=== PATIENT | female | born 1970 | race Caucasian/White ===

== ENCOUNTER → 2019-12-11 13:48 | Outpatient (CLI) | payer OTHER, SELFPAY ==
--- NOTE | 2019-12-11 | DI.US.S_ITS ---
PROCEDURE: US PELVIC COMPLETE INDICATIONS: BLEEDING TECHNIQUE: Real-time scanning was performed of the pelvic organs, with image documentation. Additional endovaginal scanning was necessary due to incomplete visualization of the adnexal and endometrial structures by transabdominal scanning. COMPARISON: [facility], US, US PELVIC COMPLETE, 07/02/2018, 12:56. [facility], US, PELVIC COMPLETE, 07/19/2015, 13:15. [facility], US, US ABDOMEN COMPLETE, 12/11/2019, 14:41. FINDINGS: Transabdominal scanning: Fluid is seen within the facet joints themselves. Endovaginal scanning: Uterus: Uterus is normal in size at 9.7 x 4.6 x 5.3 cm. The endometrium measures 12 mm in combined thickness. Incidental note is made of nabothian cysts. Ovaries: The right ovary measures 3.9 x 1.9 x 2.2 cm. The left ovary measures 3.2 x 1.4 x 2.1 cm. The ovaries have a normal sonographic appearance. No adnexal masses are seen. IMPRESSION: Pelvic ultrasound study within normal limits, without an imaging explanation found for the patient's presenting history. Dictated by: Yusef Sexton M.D. on 12/11/2019 at 15:49 Approved by: Yusef Sexton M.D. on 12/11/2019 at 15:50
--- NOTE | 2019-12-11 | DI.US.S_ITS ---
PROCEDURE: US ABDOMEN COMPLETE INDICATIONS: EXCESSIVE AND FREQUENT MENSTRATION TECHNIQUE: Real-time scanning was performed of the abdominal and retroperitoneal organs, with image documentation. COMPARISON: [facility], US, US PELVIC COMPLETE, 12/11/2019, 14:16. FINDINGS: Liver: Liver is normal in size and homogeneous in echotexture. Gallbladder: No findings of gallstones or sludge are seen. The gallbladder wall is not thickened, measuring 3 mm or less. No specific pericholecystic fluid is seen. The sonographic Ferrera sign is negative. Biliary ducts: Intrahepatic bile ducts are non-dilated. Extrahepatic bile duct caliber is mildly dilated at 7.6 mm. Normal is 6-7 mm or less in diameter, or 10 mm or less post-cholecystectomy. Pancreas: Visualized portions of the pancreas are sonographically normal. Spleen: Spleen is normal in size and homogeneous in echotexture. Kidneys: Kidneys are normal in size and echotexture. Right kidney measures 10.7 cm long; left kidney measures 11 cm long. No hydronephrosis or nephrolithiasis. No solid masses. Aorta: Visualized aorta is normal in caliber at less than 3 cm. Iliacs: Proximal common iliac arteries are normal in caliber at less than 2.5 cm. IVC: Intrahepatic inferior vena cava is patent. Miscellaneous: No free abdominal fluid. IMPRESSION: Normal appearing gallbladder. Mildly dilated common bile duct measuring 7.6 mm, with the upper limits of normal considered to be 7 mm. If clinically appropriate, an MRCP could be considered for further evaluation (assuming that there is no contraindication to MRI). Dictated by: Yusef Sexton M.D. on 12/11/2019 at 15:50 Approved by: Yusef Sexton M.D. on 12/11/2019 at 15:51
== END ==
PROVIDERS: Family Provider Family Medicine; PCP Family Medicine; Referring Provider Family Medicine; Visit Provider Family Medicine
DX: N92.0 Excessive and frequent menstruation with regular cycle (principal); R10.10 Upper abdominal pain, unspecified; D25.9 Leiomyoma of uterus, unspecified; K83.8 Other specified diseases of biliary tract; N88.8 Other specified noninflammatory disorders of cervix uteri
CPT/HCPCS: 76700; 76830; 76856

== ENCOUNTER → 2020-01-01 13:59 | Outpatient (CLI) | payer OTHER, SELFPAY ==
--- NOTE | 2020-01-01 | DI.MRI.S_ITS ---
PROCEDURE: MR ABDOMEN WO CON INDICATIONS: OTHER DISEASE OF BI SYSTEM TECHNIQUE: Coronal HASTE through the abdomen, axial 2-D FLASH in- and [id number], and breath-hold T2 FSE with fat saturation through the biliary system and pancreas. Oblique coronal and axial thin-slice HASTE, radial thick-slab HASTE centered on the extrahepatic bile ducts. Intravenous secretin: Not requested. COMPARISON: [facility], , ABDOMEN COMPLETE, 12/11/2019, 14:41. FINDINGS: Image quality: Excellent. Pancreas and biliary system: Intra- and extra-hepatic biliary ducts are non dilated. Pancreas is normal in morphology, without adjacent soft tissue edema. Pancreatic duct is normal in caliber, without developmental anomalies. Gallbladder is free of calculus. Other solid organs: Liver is normal in size. Spleen is normal in size. No adrenal nodules. Both kidneys are normal in size, without hydronephrosis. Nodes and vessels: No retroperitoneal or mesenteric adenopathy by size criteria. Aorta and inferior vena cava are normal in size. Bowel and peritoneum: Unenhanced bowel loops are normal in caliber. No free fluid. Lung bases: No basal pleural effusions. Heart size is normal. Bones and soft tissues: No ventral hernias. Bone marrow is of normal overall signal. IMPRESSION: Normal MR cholangiogram, normal appearance of the gallbladder and at time of scanning there is no suspicion for presence of common duct calculus. The pancreas shows no evidence of mass, or inflammation. Overall, normal for age. Dictated by: Fan Guevara M.D. on 01/01/2020 at 15:47 Approved by: Fan Guevara M.D. on 01/01/2020 at 15:50
== END ==
PROVIDERS: Family Provider Family Medicine; PCP Family Medicine; Referring Provider Family Medicine; Visit Provider Family Medicine
DX: K83.8 Other specified diseases of biliary tract (principal); R10.11 Right upper quadrant pain
CPT/HCPCS: 74181

== ENCOUNTER → 2020-03-12 12:01 | Outpatient (CLI) | payer OTHER, SELFPAY ==
--- NOTE | 2020-03-12 | DI.MG.S_ITS ---
BILATERAL DIGITAL SCREENING MAMMOGRAM 3D/2D WITH CAD WITH AUGMENTATION: 03/12/2020 CLINICAL: Routine screening. Comparison is made to exam dated: 07/26/2015 [facility]. The tissue of both breasts is extremely dense, which lowers the sensitivity of mammography. Current study was also evaluated with a Computer Aided Detection (CAD) system. Bilateral breast implants are intact. No significant masses, calcifications, or other findings are seen in either breast. There has been no significant interval change. IMPRESSION: NEGATIVE There is no mammographic evidence of malignancy. A 1 year screening mammogram is recommended. This exam was interpreted at Station ID: [id number]. NOTE: For mammograms, a report in lay terms will be sent to the patient. Approximately 15% of breast malignancies will not be visualized mammographically. In the management of a palpable breast mass, a negative mammogram must not discourage biopsy of a clinically suspicious lesion. Electronically Signed By: Domonique perez/bryn:03/12/2020 13:09:08 letter sent: Normal Exam ACR BI-RADS Category 1: Negative 3341F
== END ==
PROVIDERS: Family Provider Family Medicine; PCP Family Medicine; Referring Provider Family Medicine; Visit Provider Family Medicine
DX: Z12.31 Encounter for screening mammogram for malignant neoplasm of breast (principal)
CPT/HCPCS: 77063; 77067

== ENCOUNTER 2020-06-10 18:02 | Emergency (ER) | payer OTHER, SELFPAY ==
[2020-06-10 18:14] VITALS: BP 153/76; PULSE 85; PULSE 93; RESP 14; TEMP 37.1; O2SAT 100; O2SAT 99; BMI 26.6
--- NOTE | 2020-06-10 18:16 | DI.RAD.S_ITS ---
PROCEDURE: XR CHEST 1V INDICATIONS: chest pain TECHNIQUE: One view of the chest was acquired. COMPARISON: None. FINDINGS: Surgical changes and devices: None. Lungs and pleura: Lungs are clear. No pleural effusions or pneumothorax. Mediastinum: Mediastinal contours appear normal. Heart size is normal. Bones and chest wall: No suspicious bony lesions. Overlying soft tissues appear unremarkable. IMPRESSION: No acute process. Dictated by: Isabella Flores M.D. on 06/10/2020 at 19:29 Approved by: Isabella Flores M.D. on 06/10/2020 at 19:29
[2020-06-10 18:30] VITALS: PULSE 86; RESP 13; O2SAT 100
[2020-06-10 18:31] VITALS: BP 146/81; PULSE 85; RESP 18; O2SAT 98
[2020-06-10 18:47] LABS: Add Manual Diff / Slide Review NO; Basophils Absolute Auto 0 /uL (0-100); Basophils Percent Auto 0.7 % (0-2); Eosinophils Absolute Auto 100 /uL (0-450); Eosinophils Percent Auto 1.1 % (2-4); Hematocrit 41.5 % (36-46); Hemoglobin 13.8 g/dL (12.0-16.0); Lymphocytes Absolute Auto 1400 /uL (1100-4500); Lymphocytes Percent Auto 23.1 % (25-40); Mean Corpuscular HGB Conc 33.2 % (30-36); Mean Corpuscular Hemoglobin 28.6 PG (26-34); Mean Corpuscular Volume 86.2 fL (80-100); Monocytes Absolute Auto 300 /uL (0-900); Monocytes Percent Auto 5.6 % (3-14); Neutrophils Absolute Auto 4300 /uL (1500-7000); Neutrophils Percent Auto 69.5 % (50-75); Platelet Count 184 X10^3/uL (150-400); Prothrombin Time 11.3 SECONDS (10.1-12.7); Red Blood Cell Count 4.81 X10^6/uL (4.0-5.2); Red Cell Distribution Width 14.8 % (11.6-14.8); White Blood Cell Count 6.2 X10^3/uL (4.5-11.0)
[2020-06-10] MEDS: ONDANSETRON 4 MG ODT SL (18:48)
[2020-06-10] MEDS: ASPIRIN 81 MG CHEW TAB 324 MG PO (18:48)
[2020-06-10 18:49] LABS: PTT Partial Thromboplastin Tim 30 SECONDS (26.4-36.2)
[2020-06-10 18:52] LABS: Alanine Aminotransferase 15 IU/L (<35); Albumin 4.6 g/dL (3.5-5.0); Albumin Globulin Ratio 1.5 (1.0-2.8); Alkaline Phosphatase 61 U/L (38-126); Aspartate Aminotransferase 29 IU/L (14-36); BUN Creatinine Ratio 19.4 (6-22); Bilirubin Total 0.4 mg/dL (0.2-1.3); Blood Urea Nitrogen 12 mg/dL (7-17); Carbon Dioxide 28 mmol/L (22-32); Chloride 104 mmol/L (98-107); Creatine Kinase 59 U/L (30-135); Estimated Glomerular Filt Rate > 60.0 mL/min (>60); Globulin 3.1 g/dL (1.7-4.1); Glucose 108 mg/dL (70-100); HEMOLYSIS < 15 (0-50); Lipase 169 U/L (23-300); Potassium 3.4 mmol/L (3.4-5.1); Sodium 137 mmol/L (137-145); Total Protein 7.7 g/dL (6.3-8.2)
[2020-06-10 18:55] LABS: COVID19 -Nasal RAPID Negative (Negative)
[2020-06-10 19:00] VITALS: BP 142/73; PULSE 90; RESP 14; O2SAT 97
[2020-06-10 19:03] LABS: Troponin I < 0.012 ng/mL (0.01-0.034)
[2020-06-10 19:30] VITALS: BP 132/84; PULSE 83; RESP 17; O2SAT 96
--- NOTE | 2020-06-10 19:49 | ED.GENADULT ---
HPI - General Adult General Chief complaint: Hypertension Stated complaint: states hypertension, SOB, headache, ringing ears Time Seen by Provider: 06/10/20 19:23 Source: patient Mode of arrival: Wheelchair Limitations: no limitations History of Present Illness HPI narrative: Patient is a 49-year-old female who admits that she has anxiety issues here for evaluation of multiple symptoms to include elevated blood pressure, headache, not feeling well, ringing in her ears, shortness of breath. She states that all the symptoms have been going on for the past several weeks. She was exposed to an individual who had COVID-19 a several weeks ago however has had a negative test since then which was approximately 1 week after her exposure. She has not tried anything for her symptoms prior to arrival. Related Data Home Medications Medication Instructions Recorded Confirmed alprazolam 0.5 mg tablet 0.25 mg PO BID-TID PRN 07/02/18 07/02/18 escitalopram oxalate 20 mg tablet 20 mg PO DAILY 07/02/18 07/02/18 lisdexamfetamine 50 mg capsule 50 mg PO DAILY 07/02/18 07/02/18 Allergies Allergy/AdvReac Type Severity Reaction Status Date / Time bupropion [From Wellbutrin] Allergy Mild Hives Verified 06/10/20 18:17 Review of Systems Constitutional Constitutional: Reports chills, Reports fatigue, Reports fever(s) and Reports headache(s) Eyes Eyes: Denies change in vision ENT Ears, Nose, Mouth, and Throat: Denies vertigo, Denies dizziness and Reports headache(s) Comments: Ringing in her ears Cardiovascular Cardiovascular: Reports chest pain and Reports dyspnea Respiratory Respiratory: Reports dyspnea Gastrointestinal Gastrointestinal: Denies abdominal pain, Reports nausea and Denies vomiting Genitourinary Genitourinary: Denies dysuria Genitourinary: Denies dysuria Musculoskeletal Musculoskeletal: Denies arthralgias, Denies myalgias and Denies tingling Integumentary/Breasts Skin/Breast: Denies rash Neurologic Neurologic: Denies vertigo, Denies dizziness, Reports headache(s) and Denies tingling Psychiatric Psychiatric: Reports anxiety Endocrine Endocrine: Reports fatigue and Reports flushing Hematologic/Lymphatic On Anticoagulants: No Allergic/Immunologic Allergic/Immunologic: Denies urticaria Patient History Medical History Anxiety Social History Smoking Status: Former smoker Smoking Status: Former smoker alcohol intake frequency: holidays/special occasions only Substance Use Type: marijuana Exam Initial Vital Signs Initial Vital Signs: Vital Signs Temperature 98.8 F 06/10/20 18:14 Pulse Rate 85 06/10/20 18:14 Respiratory Rate 14 06/10/20 18:14 Blood Pressure 153/76 H 06/10/20 18:14 Pulse Oximetry 99 06/10/20 18:14 Const General: cooperative and comfortable Limitations: mental status not altered HENMT Head: normal to inspection and normocephalic Resp Effort & Inspection: normal respiratory effort Auscultation: clear to auscultation bilaterally Cardio Rate: regular rate Rhythm: regular rhythm GI Inspection: non-distended Palpation: soft Skin Lesions: no lesions Rashes: no rashes Neuro General: patient alert, patient awake and patient oriented x3 Cognition: normal cognition Speech: speech normal Extrem General: normal to inspection and capillary refill normal Psych Appearance: grossly normal and well kempt Scores GCS [place] coma scale eye opening: Spontaneous [place] coma scale verbal response: Orientated Serge coma scale motor response: Obey commands Serge coma scale total score: 15 Course Orders Ordered: ED Orders 06/10/20 18:25 COVID19 Stat Complete Blood Count AUTO DIFF Stat Comprehensive Metabolic Panel Stat Lipase Stat Partial Thromboplastin Time Stat Prothrombin Time INR Stat Troponin & CK Cardiac Panel Stat Discontinued Medications Aspirin (Aspirin 81 Mg Chew Tab) 324 mg PO NOW ONE Stop: 06/10/20 18:44 Last Admin: 06/10/20 18:48 Dose: 324 mg Documented by: KARLIE Ondansetron HCl (Ondansetron 4 Mg Odt) 4 mg SL NOW ONE Stop: 06/10/20 18:45 Last Admin: 06/10/20 18:48 Dose: 4 mg Documented by: KARLIE Vital Signs Vital signs: Vital Signs - 8 hr 06/10/20 19:30 Pulse Rate 83 Respiratory Rate 17 Blood Pressure 132/84 Pulse Oximetry 96 Medical Decision Making Medical Records Medical records reviewed: Yes I reviewed the patient's medical records. Lab Data Lab results reviewed: Yes I reviewed the patient's lab results. Result diagrams: 06/10/20 18:25 06/10/20 18:25 Labs: Lab Results 06/10/20 06/10/20 06/10/20 Range/Units 18:25 18:25 18:25 WBC 6.2 (4.5-11.0) X10^3/uL RBC 4.81 (4.0-5.2) X10^6/uL Hgb 13.8 (12.0-16.0) g/dL Hct 41.5 (36-46) % MCV 86.2 (80-100) fL MCH 28.6 (26-34) PG MCHC 33.2 (30-36) % RDW 14.8 (11.6-14.8) % Plt Count 184 (150-400) X10^3/uL Neut % (Auto) 69.5 (50-75) % Lymph % (Auto) 23.1 L (25-40) % [place] % (Auto) 5.6 (3-14) % Eos % (Auto) 1.1 L (2-4) % Baso % (Auto) 0.7 (0-2) % Neut # (Auto) 4300 (5342-7478) /uL Lymph # (Auto) 1400 (6951-2936) /uL [place] # (Auto) 300 (0-900) /uL Eos # (Auto) 100 (0-450) /uL Baso # (Auto) 0 (0-100) /uL PT 11.3 (10.1-12.7) SECONDS INR 1.0 (0.9-1.3) APTT 30 (26.4-36.2) SECONDS Sodium 137 (137-145) mmol/L Potassium 3.4 (3.4-5.1) mmol/L Chloride 104 (98-107) mmol/L Carbon Dioxide 28 (22-32) mmol/L BUN 12 (7-17) mg/dL Creatinine 0.62 (0.52-1.04) mg/dL Estimated GFR > 60.0 (>60) mL/min BUN/Creatinine Ratio 19.4 (6-22) Glucose 108 H (70-100) mg/dL Calcium 9.0 (8.4-10.2) mg/dL Total Bilirubin 0.4 (0.2-1.3) mg/dL AST 29 (14-36) IU/L ALT 15 (<35) IU/L Alkaline Phosphatase 61 (38-126) U/L Total Creatine Kinase 59 (30-135) U/L CK-MB (CK-2) TNP CK-MB (CK-2) Rel Index TNP Troponin I < 0.012 (0.01-0.034) ng/mL Total Protein 7.7 (6.3-8.2) g/dL Albumin 4.6 (3.5-5.0) g/dL Globulin 3.1 (1.7-4.1) g/dL Albumin/Globulin Ratio 1.5 (1.0-2.8) Lipase 169 (23-300) U/L SARS-CoV-2 (PCR) (Negative) 06/10/20 Range/Units 18:25 WBC (4.5-11.0) X10^3/uL RBC (4.0-5.2) X10^6/uL Hgb (12.0-16.0) g/dL Hct (36-46) % MCV (80-100) fL MCH (26-34) PG MCHC (30-36) % RDW (11.6-14.8) % Plt Count (150-400) X10^3/uL Neut % (Auto) (50-75) % Lymph % (Auto) (25-40) % [place] % (Auto) (3-14) % Eos % (Auto) (2-4) % Baso % (Auto) (0-2) % Neut # (Auto) (9105-9278) /uL Lymph # (Auto) (9573-7685) /uL [place] # (Auto) (0-900) /uL Eos # (Auto) (0-450) /uL Baso # (Auto) (0-100) /uL PT (10.1-12.7) SECONDS INR (0.9-1.3) APTT (26.4-36.2) SECONDS Sodium (137-145) mmol/L Potassium (3.4-5.1) mmol/L Chloride (98-107) mmol/L Carbon Dioxide (22-32) mmol/L BUN (7-17) mg/dL Creatinine (0.52-1.04) mg/dL Estimated GFR (>60) mL/min BUN/Creatinine Ratio (6-22) Glucose (70-100) mg/dL Calcium (8.4-10.2) mg/dL Total Bilirubin (0.2-1.3) mg/dL AST (14-36) IU/L ALT (<35) IU/L Alkaline Phosphatase (38-126) U/L Total Creatine Kinase (30-135) U/L CK-MB (CK-2) CK-MB (CK-2) Rel Index Troponin I (0.01-0.034) ng/mL Total Protein (6.3-8.2) g/dL Albumin (3.5-5.0) g/dL Globulin (1.7-4.1) g/dL Albumin/Globulin Ratio (1.0-2.8) Lipase (23-300) U/L SARS-CoV-2 (PCR) Negative (Negative) Imaging Data Chest x-ray: Radiologist's Impression: [address] [id number] ReportSigned Patient: Holland Irizarry AMR#: [id number]: 1970Acct:[id number]/Sex: 49 / FDate of Service: 06/10/20Loc: EDAccession Number: [id number] Procedure: XR chest 1V Ordering Provider: Roland Edwards D.O. PROCEDURE: XR CHEST 1V INDICATIONS: chest pain TECHNIQUE: One view of the chest was acquired. COMPARISON: None. FINDINGS: Surgical changes and devices: None. Lungs and pleura: Lungs are clear. No pleural effusions or pneumothorax. Mediastinum: Mediastinal contours appear normal. Heart size is normal. Bones and chest wall: No suspicious bony lesions. Overlying soft tissues appear unremarkable. IMPRESSION: No acute process. Dictated by: Isabella Flores M.D. on 06/10/2020 at 19:29 Approved by: Isabella Flores M.D. on 06/10/2020 at 19:29 ECG Data Attestation: I personally reviewed and interpreted this ECG as follows: Prior ECG tracings: not available for review Interpretation: Sinus rhythm Ventricular rate 86 Normal axis Normal QRS Normal QTC No ST T wave changes MDM Narrative Medical decision making narrative: Patient workup here in the emergency department is unremarkable. Her blood pressure improved without specific interventions here in the ER. Had a discussion with her regarding her symptoms. I do have a high suspicion that many of her symptoms are related to menopause as she states she is having very irregular menstrual cycles. She states she is getting hot flashes and having anxiety and other issues that are consistent with menopause. I did discuss this with her. She is going to contact her primary provider for further workup. I feel that she can be discharged home. We did discuss return precautions and follow-up instructions. She expressed understanding and agreement. Discharge Plan Departure Patient Disposition: Home Clinical Impression: Hypertension Instructions: DI for High Blood Pressure Activity Restrictions/Additional Instructions: I recommend that you take your blood pressure at home like we discussed. Contact your primary provider for follow-up. Return to the emergency department for any new or worsening symptoms Prescriptions: No Action alprazolam [Xanax] 0.5 mg tablet 0.25 mg PO BID-TID PRNRF: 0 escitalopram oxalate [Lexapro] 20 mg tablet 20 mg PO DAILY RF: 0 Vyvanse 50 mg capsule 50 mg PO DAILY RF: 0 Referrals: Roland Jay MD [Primary Care Provider] -
== END 2020-06-10 20:05 | disposition home or self-care (01) ==
PROVIDERS: Emergency Provider Emergency Medicine; Family Provider Family Medicine; PCP Family Medicine
DX: I10 Essential (primary) hypertension (principal); R51.9 Headache, unspecified; R06.02 Shortness of breath; F41.9 Anxiety disorder, unspecified; R07.9 Chest pain, unspecified; Z20.822 Contact with and (suspected) exposure to COVID-19
CPT/HCPCS: 36415; 71045; 80053; 82550; 83690; 84484; 85025; 85610; 85730; 87635; 93005; 93010; 99281; 99284; C9803

== ENCOUNTER → 2022-01-30 09:14 | Outpatient (CLI) | payer OTHER, SELFPAY | PROVIDERS: Family Provider Family Medicine; PCP Physician Assistant; Visit Provider Physician Assistant | DX: B80 Enterobiasis (principal); L29.0 Pruritus ani | CPT/HCPCS: 87177 ==

== ENCOUNTER → 2022-01-31 10:58 | Outpatient (CLI) | payer OTHER, SELFPAY ==
[2022-01-31 19:13] LABS: Add Manual Diff / Slide Review NO; Basophils Absolute Auto 0 /uL (0-100); Basophils Percent Auto 0.5 % (0-2); Eosinophils Absolute Auto 100 /uL (0-450); Eosinophils Percent Auto 1.1 % (2-4); Hematocrit 43.4 % (36-46); Hemoglobin 14.4 g/dL (12.0-16.0); Lymphocytes Absolute Auto 1400 /uL (1100-4500); Lymphocytes Percent Auto 29.3 % (25-40); Mean Corpuscular HGB Conc 33.2 % (30-36); Mean Corpuscular Hemoglobin 29.5 PG (26-34); Mean Corpuscular Volume 88.9 fL (80-100); Monocytes Absolute Auto 300 /uL (0-900); Neutrophils Absolute Auto 2900 /uL (1500-7000); Neutrophils Percent Auto 62.1 % (50-75); Platelet Count 196 X10^3/uL (150-400); Red Blood Cell Count 4.88 X10^6/uL (4.0-5.2); Red Cell Distribution Width 13.7 % (11.6-14.8); White Blood Cell Count 4.7 X10^3/uL (4.5-11.0)
[2022-01-31 19:45] LABS: Alanine Aminotransferase 12 IU/L (<35); Albumin 4.3 g/dL (3.5-5.0); Albumin Globulin Ratio 1.5 (1.0-2.8); Alkaline Phosphatase 63 U/L (38-126); Aspartate Aminotransferase 26 IU/L (14-36); BUN Creatinine Ratio 13.7 (6-22); Bilirubin Total 0.6 mg/dL (0.2-1.3); Blood Urea Nitrogen 10 mg/dL (7-17); Calcium 9.1 mg/dL (8.4-10.2); Carbon Dioxide 29 mmol/L (22-32); Chloride 101 mmol/L (98-107); Cholesterol 202 mg/dL (140-199); Estimated Glomerular Filt Rate > 60 mL/min (>60); Globulin 2.9 g/dL (1.7-4.1); Glucose 101 mg/dL (70-100); HDL Cholesterol 57 mg/dL (40-60); HEMOLYSIS < 15 (0-50); LDL Cholesterol Calculated 126 mg/dL (<100); Potassium 4.1 mmol/L (3.4-5.1); Sodium 139 mmol/L (137-145); Total Protein 7.2 g/dL (6.3-8.2); Triglycerides 93 mg/dL (35-150)
== END ==
PROVIDERS: Family Provider Family Medicine; PCP Physician Assistant; Visit Provider Physician Assistant
DX: Z13.220 Encounter for screening for lipoid disorders (principal); K29.70 Gastritis, unspecified, without bleeding
CPT/HCPCS: 80053; 80061; 85025

== ENCOUNTER → 2022-02-20 13:29 | Outpatient (CLI) | payer OTHER, SELFPAY ==
[2022-02-20 19:26] LABS: Hemoglobin A1C% w Est Avg Glu 5.3 % (4.0-6.0)
[2022-02-20 19:52] LABS: TSH w/ Reflex to FT4 0.09 uIU/mL (0.47-4.68)
[2022-02-20 20:33] LABS: Free T4, Direct Thyroxine 1.12 ng/dL (0.78-2.19)
== END ==
PROVIDERS: Family Provider Family Medicine; PCP Physician Assistant; Visit Provider Physician Assistant
DX: E03.9 Hypothyroidism, unspecified (principal); R73.09 Other abnormal glucose
CPT/HCPCS: 83036; 84439; 84443

== ENCOUNTER → 2022-03-06 12:29 | Outpatient (CLI) | payer OTHER, SELFPAY ==
--- NOTE | 2022-03-06 | DI.MG.S_ITS ---
BILATERAL DIGITAL SCREENING MAMMOGRAM 3D/2D WITH CAD WITH AUGMENTATION: 03/06/2022 CLINICAL: Routine screening. Comparison is made to exams dated: 03/12/2020 mammogram and 07/26/2015 mammogram - [facility]. Both breasts are extremely dense, which lowers the sensitivity of mammography (category d />75% glandular tissue). Current study was also evaluated with a Computer Aided Detection (CAD) system. Bilateral breast implants are intact. No significant masses, calcifications, or other findings are seen in either breast. There has been no significant interval change. IMPRESSION: NEGATIVE There is no mammographic evidence of malignancy. A 1 year screening mammogram is recommended. This exam was interpreted at Station ID: [id number]. NOTE: For mammograms, a report in lay terms will be sent to the patient. Approximately 15% of breast malignancies will not be visualized mammographically. In the management of a palpable breast mass, a negative mammogram must not discourage biopsy of a clinically suspicious lesion. Electronically Signed By: Uri gutierrez/bryn:03/06/2022 16:55:13 letter sent: Normal Exam ACR BI-RADS Category 1: Negative [id number]
== END ==
PROVIDERS: Family Provider Family Medicine; PCP Physician Assistant; Referring Provider Physician Assistant; Visit Provider Physician Assistant
DX: Z12.31 Encounter for screening mammogram for malignant neoplasm of breast (principal)
CPT/HCPCS: 77063; 77067

== ENCOUNTER → 2022-05-22 11:42 | Outpatient (CLI) | payer OTHER, SELFPAY | PROVIDERS: Family Provider Family Medicine; PCP Family Medicine; Visit Provider Family Medicine | DX: T81.40XA Infection following a procedure, unspecified, initial encounter (principal); R53.83 Other fatigue; N89.8 Other specified noninflammatory disorders of vagina; Z90.710 Acquired absence of both cervix and uterus | CPT/HCPCS: 87070; 87077; 87186; 87205 ==

== ENCOUNTER 2022-05-26 18:15 | Emergency (ER) | payer OTHER, SELFPAY ==
[2022-05-26] VITALS (15 sets, daily range): BP systolic 96–137; BP diastolic 66–83; PULSE 74–87; RESP 18; TEMP 36.6; O2SAT 93–100; BMI 25.8
[2022-05-26 19:07] LABS: Add Manual Diff / Slide Review NO; Basophils Absolute Auto 100 /uL (0-100); Basophils Percent Auto 0.7 % (0-2); Eosinophils Absolute Auto 100 /uL (0-450); Hematocrit 47.4 % (36-46); Hemoglobin 15.5 g/dL (12.0-16.0); Lymphocytes Absolute Auto 1700 /uL (1100-4500); Lymphocytes Percent Auto 21.4 % (25-40); Mean Corpuscular HGB Conc 32.7 % (30-36); Mean Corpuscular Hemoglobin 29.5 PG (26-34); Monocytes Absolute Auto 500 /uL (0-900); Monocytes Percent Auto 5.9 % (3-14); Neutrophils Absolute Auto 5500 /uL (1500-7000); Platelet Count 294 X10^3/uL (150-400); Red Blood Cell Count 5.27 X10^6/uL (4.0-5.2); Red Cell Distribution Width 13.2 % (11.6-14.8); White Blood Cell Count 7.8 X10^3/uL (4.5-11.0)
[2022-05-26 19:13] LABS: Alanine Aminotransferase 33 IU/L (<35); Albumin 4.6 g/dL (3.5-5.0); Albumin Globulin Ratio 1.4 (1.0-2.8); Alkaline Phosphatase 77 U/L (38-126); Aspartate Aminotransferase 35 IU/L (14-36); BUN Creatinine Ratio 16.9 (6-22); Bilirubin Total 0.5 mg/dL (0.2-1.3); Blood Urea Nitrogen 12 mg/dL (7-17); Calcium 9.4 mg/dL (8.4-10.2); Carbon Dioxide 25 mmol/L (22-32); Chloride 101 mmol/L (98-107); Estimated Glomerular Filt Rate > 60 mL/min (>60); Globulin 3.3 g/dL (1.7-4.1); Glucose 92 mg/dL (70-100); HEMOLYSIS < 15 (0-50); Lipase 252 U/L (23-300); Potassium 3.8 mmol/L (3.4-5.1); Sodium 138 mmol/L (137-145); Total Protein 7.9 g/dL (6.3-8.2)
--- NOTE | 2022-05-26 19:23 | ED.GENADULT ---
HPI - General Adult General Chief complaint: Abdominal Pain Stated complaint: Abd pain post hysterectomy on the Time Seen by Provider: 05/26/22 19:23 Source: patient Mode of arrival: Ambulatory History of Present Illness HPI narrative: 51-year-old woman who underwent hysterectomy at [facility] on May 10 and was doing well in her recovery until May 18. She apparently had genital swabs done, was started on doxycycline with a dose of ceftriaxone on 05/22. yesterday was changed to Cipro after vaginal culture showed Morganella. She was seen by primary care today and noted to have increased nausea, generally feeling unwell with increasing abdominal tenderness, dizziness when she standing, notes an episode of dyspnea last night has had palpitations over the last few days and is also having some tinnitus over the last number of days which is new and unusual for her. Denies vaginal discharge, fevers or chills but has noted mild hematuria. Complains of no flank pain. In the clinic this afternoon urine dip was positive for leukocyte esterase. It was recommended she take [place] to [place] for further evaluation and presents for same. Related Data Home Medications Medication Instructions Recorded Confirmed carica papaya tab PO 01/26/22 05/22/22 cholecalciferol (vitamin D3) 125 125 mcg PO DAILY 01/26/22 05/22/22 mcg (5,000 unit) capsule lactobacillus combination no.9 4 4,000 mmu cells PO DAILY 01/26/22 05/22/22 billion cell capsule (Adult 50 Plus Probiotic) magnesium gluconate 500 mg tablet 1,600 mg PO BID 01/26/22 05/22/22 melatonin 3 mg tablet 3 mg PO BEDTIME PRN 01/26/22 05/22/22 omega-3 fatty acids 500 mg capsule 500 mg PO DAILY 01/26/22 05/22/22 Previous Rx's Medication Instructions Recorded mebendazole 100 mg chewable tablet 100 mg PO ONCE #2 tabs 01/26/22 semaglutide 0.25 mg or 0.5 mg (2 0.25 mg (0.2 mL) SUBCUT QWEEK #1.5 03/31/22 mg/1.5 mL) subcutaneous pen mL injector (Ozempic) thyroid (pork) 30 mg tablet 45 mg PO DAILY #45 tabs 03/31/22 ([place] Thyroid) semaglutide 3 mg tablet (Rybelsus) 3 mg PO DAILY 30 days #30 tabs 05/12/22 semaglutide 7 mg tablet (Rybelsus) 7 mg PO DAILY #30 tabs 05/12/22 ciprofloxacin HCl 500 mg tablet 500 mg PO BID #14 tabs 05/25/22 (Cipro) Allergies Allergy/AdvReac Type Severity Reaction Status Date / Time bupropion [From Wellbutrin] Allergy Mild Hives Verified 03/31/22 10:38 Review of Systems Review of Systems Narrative: Remainder of complete review of systems is otherwise unremarkable except for that included in the HPI. Patient History Medical History (Updated 05/26/22 @ 22:25 by Terri Salazar MD) Anxiety Bronchospasm Cough Fever, unspecified H/O low back pain H/O urinary tract infection Screening for breast cancer Surgical History (Updated 05/26/22 @ 19:39 by Terri Salazar MD) H/O breast augmentation H/O vaginal hysterectomy History of esophagogastroduodenoscopy (EGD) Social History Smoking Status: Former smoker Smoking Status: Former smoker alcohol intake frequency: holidays/special occasions only Substance Use Type: marijuana Exam Initial Vital Signs Initial Vital Signs: Vital Signs Temperature 97.9 F 05/26/22 18:19 Pulse Rate 87 05/26/22 18:19 Respiratory Rate 18 05/26/22 18:19 Blood Pressure 96/66 05/26/22 18:19 Pulse Oximetry 100 05/26/22 18:19 Oxygen Delivery Method 05/26/22 18:19 General: , in no acute distress. Able to give a complete and coherent history. Well-nourished well-developed HEENT: Moist mucous membranes, normal sclera with reactive pupils, Respiratory: Lungs are clear to auscultation, no wheezing no rales no rhonchi. Full and symmetrical air movement Cardiac: Regular rate and rhythm no murmurs no bruits Abdomen: Soft, mild tenderness in the right adnexal to right lower quadrant area, mild suprapubic tenderness. No rebound or guarding. Good bowel tones, no flank pain Skin: Warm and dry, no rashes Neurologic: Grossly neurologically intact with no obvious asymmetries or abnormalities Extremities: No trauma, well perfused Psych: Cooperative, appropriate insight and affect Course Orders Ordered: ED Orders 05/26/22 18:25 Urine Microscopic Stat EKG-12 Lead Stat 05/26/22 18:32 Complete Blood Count AUTO DIFF Stat Comprehensive Metabolic Panel Stat D Dimer Stat Lipase Stat 05/26/22 19:55 CT abdomen pelvis w con Stat CT angio chest PE protocol Stat Ondansetron HCl (Ondansetron 4 Mg Odt) 4 mg PO NOW PRN PRN Reason: Nausea And Vomiting Ondansetron HCl (Ondansetron 4 Mg/2 Ml Inj) 4 mg IV NOW PRN PRN Reason: Nausea And Vomiting Discontinued Medications Sodium Chloride (Normal Saline 0.9%) 1,000 mls @ 1,000 mls/hr IV BOLUS ONE Stop: 05/26/22 20:43 Last Infusion: 05/26/22 21:37 Dose: 0 mls/hr Documented By: Admin: 05/26/22 19:58 Dose: 1,000 mls/hr Documented By: YRAIEL Ketorolac Tromethamine (Ketorolac 30 Mg/Ml Vial) 15 mg IV NOW ONE Stop: 05/26/22 19:45 Last Admin: 05/26/22 19:59 Dose: 15 mg Documented By: YARIEL Vital Signs Vital signs: Vital Signs - 8 hr 05/26/22 18:19 05/26/22 18:49 Temperature 97.9 F Pulse Rate 87 Respiratory Rate 18 Blood Pressure 96/66 117/75 Pulse Oximetry 100 Oxygen Delivery Method Room Air Medical Decision Making Lab Data 05/26/22 18:32 05/26/22 18:32 Labs: Lab Results 05/26/22 05/26/22 05/26/22 Range/Units 18:25 18:32 18:32 WBC 7.8 (4.5-11.0) X10^3/uL RBC 5.27 H (4.0-5.2) X10^6/uL Hgb 15.5 (12.0-16.0) g/dL Hct 47.4 H (36-46) % MCV 90.0 (80-100) fL MCH 29.5 (26-34) PG MCHC 32.7 (30-36) % RDW 13.2 (11.6-14.8) % Plt Count 294 (150-400) X10^3/uL Neut % (Auto) 71.0 (50-75) % Lymph % (Auto) 21.4 L (25-40) % [place] % (Auto) 5.9 (3-14) % Eos % (Auto) 1.0 L (2-4) % Baso % (Auto) 0.7 (0-2) % Neut # (Auto) 5500 (7865-1634) /uL Lymph # (Auto) 1700 (0155-5688) /uL [place] # (Auto) 500 (0-900) /uL Eos # (Auto) 100 (0-450) /uL Baso # (Auto) 100 (0-100) /uL D-Dimer (<500) ng/ml Sodium 138 (137-145) mmol/L Potassium 3.8 (3.4-5.1) mmol/L Chloride 101 (98-107) mmol/L Carbon Dioxide 25 (22-32) mmol/L BUN 12 (7-17) mg/dL Creatinine 0.71 (0.52-1.04) mg/dL Estimated GFR > 60 (>60) mL/min BUN/Creatinine Ratio 16.9 (6-22) Glucose 92 (70-100) mg/dL Calcium 9.4 (8.4-10.2) mg/dL Total Bilirubin 0.5 (0.2-1.3) mg/dL AST 35 (14-36) IU/L ALT 33 (<35) IU/L Alkaline Phosphatase 77 (38-126) U/L Total Protein 7.9 (6.3-8.2) g/dL Albumin 4.6 (3.5-5.0) g/dL Globulin 3.3 (1.7-4.1) g/dL Albumin/Globulin Ratio 1.4 (1.0-2.8) Lipase 252 (23-300) U/L Urine RBC None seen (0-5/HPF) Urine WBC None seen (0-5/HPF) Ur Squamous Epith Cells 0-1 /hpf (0-5/HPF) Urine Bacteria None seen (None) Ur Culture Indicated? Cult not indicated 05/26/22 Range/Units 18:32 WBC (4.5-11.0) X10^3/uL RBC (4.0-5.2) X10^6/uL Hgb (12.0-16.0) g/dL Hct (36-46) % MCV (80-100) fL MCH (26-34) PG MCHC (30-36) % RDW (11.6-14.8) % Plt Count (150-400) X10^3/uL Neut % (Auto) (50-75) % Lymph % (Auto) (25-40) % [place] % (Auto) (3-14) % Eos % (Auto) (2-4) % Baso % (Auto) (0-2) % Neut # (Auto) (9566-0878) /uL Lymph # (Auto) (3880-3801) /uL [place] # (Auto) (0-900) /uL Eos # (Auto) (0-450) /uL Baso # (Auto) (0-100) /uL D-Dimer 719 H (<500) ng/ml Sodium (137-145) mmol/L Potassium (3.4-5.1) mmol/L Chloride (98-107) mmol/L Carbon Dioxide (22-32) mmol/L BUN (7-17) mg/dL Creatinine (0.52-1.04) mg/dL Estimated GFR (>60) mL/min BUN/Creatinine Ratio (6-22) Glucose (70-100) mg/dL Calcium (8.4-10.2) mg/dL Total Bilirubin (0.2-1.3) mg/dL AST (14-36) IU/L ALT (<35) IU/L Alkaline Phosphatase (38-126) U/L Total Protein (6.3-8.2) g/dL Albumin (3.5-5.0) g/dL Globulin (1.7-4.1) g/dL Albumin/Globulin Ratio (1.0-2.8) Lipase (23-300) U/L Urine RBC (0-5/HPF) Urine WBC (0-5/HPF) Ur Squamous Epith Cells (0-5/HPF) Urine Bacteria (None) Ur Culture Indicated? Point of Care Testing Test Results Negative Urine Dip Bedside Urine Glucose Negative Bedside Urine Bilirubin - Negative Bedside Urine Ketone - Negative Urine Specific [place] 1.010 Bedside Urine Occult Blood +/- Bedside Urine pH 6.0 Bedside Urine Protein +/- 15 Bedside Urine Nitrite - Negative Bedside Urine Leukocytes - Negative Esterase Point of care testing: Point of Care Testing Test Results Negative Urine Dip Bedside Urine Glucose Negative Bedside Urine Bilirubin - Negative Bedside Urine Ketone - Negative Urine Specific [place] 1.010 Bedside Urine Occult Blood +/- Bedside Urine pH 6.0 Bedside Urine Protein +/- 15 Bedside Urine Nitrite - Negative Bedside Urine Leukocytes - Negative Esterase Imaging Data CT scan - chest: Radiologist's Impression: FINDINGS:? Image quality:? Excellent.? ? Pulmonary arteries:? Pulmonary arteries are normal in size, and demonstrate no intraluminal filling defects to suggest central pulmonary embolism.? ? Lower Neck: No lymphadenopathy by size criteria. Thyroid:? Visualized thyroid demonstrates no discrete nodules. Axillae: No lymphadenopathy by size criteria. Chest Wall:? There are bilateral peripherally calcified breast implants which appear intact. Bones: Visualized osseous structures demonstrate no suspicious lesions. ? Lungs and Airways:? No acute consolidation.? There is mild dependent atelectasis bilaterally.? The trachea and central airways are patent. Pleura: No pneumothorax or pleural effusions.? ? Heart: Heart size is normal.? No pericardial effusion. Thoracic Vessels: The thoracic aorta is normal in size.? Mediastinum and Judith: No lymphadenopathy by size criteria. Esophagus: No wall thickening. No hiatal hernia. ? Abdomen:? Visualized upper abdominal solid organs appear normal in the early arterial phase of enhancement.? ? IMPRESSION:? ? 1. No evidence of pulmonary embolism. ? 2. No acute airspace consolidation.? ? ? Dictated by: Leonardo Cornejo M.D. on 05/26/2022 at 20:51 CT scan - abdomen/pelvis: Radiologist's Impression: FINDINGS:? Image quality:? Excellent.? ? Lung bases:? There is mild dependent atelectasis bilaterally.? ? Heart:? Heart is normal in size. Chest wall:? There are partially visualized bilateral peripherally calcified breast implants. ? ? ABDOMEN: Liver:? No mass lesion.? A few punctate hypodense foci throughout the liver are too small to characterize but likely represent small cysts.? There is focal fatty infiltration in the anterior left hepatic lobe. Gallbladder:? Within normal limits without calcified gallstones.? ? Biliary ducts:? No biliary ductal dilatation.? ? Pancreas:? Unremarkable.? ? Spleen:? Normal in size.? ? Adrenal Glands:? No adrenal nodules.? ? Kidneys and Ureters:? No hydronephrosis.? ? ? Stomach and Bowel:? Stomach and small bowel loops are normal in caliber and wall thickness.? The appendix is normal in appearance.? There is colonic diverticulosis without acute diverticulitis.? Moderate stool distention is demonstrated within the cecum and ascending colon suggestive of constipation.? Peritoneum:? There is minimal free fluid in the pelvis adjacent to the vaginal cuff.? No loculated fluid collection to suggest an abscess.? There are few small subdiaphragmatic foci of free air consistent with residual sequelae of recent surgery. ? Ventral Wall: ? No hernia.? Abdominal Nodes:? No retroperitoneal or mesenteric adenopathy by size criteria.? Vessels:? Aorta and inferior vena cava are normal in size.? ? PELVIS: Pelvic Organs:? Uterus is surgically absent with mild wall thickening of the vaginal cuff likely representing postsurgical edema.? ? Bladder:? Unremarkable.? ? Pelvic Nodes: No enlarged lymph nodes.? Miscellaneous: No inguinal hernias are seen. ? ? ? Bones:? Visualized osseous structures demonstrate no suspicious focal lesions. ? IMPRESSION:? ? 1. Minimal free fluid in the pelvis adjacent the vaginal cuff without a discrete abscess collection. ? 2. A few scattered small foci of subdiaphragmatic free air likely represent residual sequelae of recent surgery.? ? ? Dictated by: Leonardo Cornejo M.D. on 05/26/2022 at 20:56 ? ? MDM Narrative Medical decision making narrative: CC: Abdominal pain 2 weeks postop laparoscopic-assisted vaginal hysterectomy with increasing systemic symptoms, this is a new problem with uncertain diagnosis and potential for significant complication Complicating co-morbidities: Surgery on May 10 Corroborating data: Data collected from: patient, Social determinants of health that may influence the patients condition: They do live in the [facility] with somewhat limited access to the [facility] Medical records reviewed: Primary care records are reviewed Differential considered: Postop complication, urinary tract infection, pulmonary embolism, sepsis, postoperative pain Exam documented above, pertinent findings include: Fatigued appearing but able to give a complete and coherent history. Mild low abdominal pain without rebound or guarding. No lower extremity edema Lab Test results independently reviewed as above. Pertinent findings: Independently reviewed EKG as above Imaging studies independently reviewed: Consultations: Treatments: Fluids, Toradol Re-evaluations: After initial evaluation will treat her pain. We discussed workup. If her D-dimer is negative this will save her a CT angiogram so will wait to get that result back prior to doing a CT scan of her abdomen which will be required given her worsening symptoms. Will follow-up after labs return. Patient and are aware of plans and agree with workup. 750pm + d dimer, CTA chest and abd/pelvis ordered. Pt aware of findings Discussion: 51-year-old woman with complaints of increasing pelvic pain 2 weeks postop. She did stop taking all pain medications including [id number] medications 48 hours ago and this may be contributing. Workup is entirely unremarkable with no evidence of surgical abdomen, intra abdominal or pelvic hematoma or abscess. No suggestion of infection, significant anemia or bladder infection. Her D-dimer was somewhat elevated we did discuss ordering this prior to doing so recognizing that it could be elevated simply from surgery. Explain that if it was negative it would be reassuring in terms of pulmonary embolism absence however if it was positive we would need to do a CT scan of the chest. With shared decision-making we opted to order the D-dimer. It was elevated the subsequent CT was unremarkable. All findings reviewed patient. Questions are answered. We spent quite a bit of time discussing her insomnia for which she has a primary care appointment next week. I did recommend returning to the ibuprofen and Tylenol dosing during the day and narcotic at night to see if better pain control allows her to get a bit more sleep than the couple of hours she currently notes that she is getting. She is safe for discharge home Disposition: see below, along with detailed discharge instructions that have been reviewed with patient as well as indications for ED re-evaluation and additional outpatient follow up Discharge Plan Departure Patient Disposition: Home Clinical Impression: Post-op pain, Fatigue, Sleep disorder Instructions: DI for Insomnia Activity Restrictions/Additional Instructions: Thank you for coming in today We looked at CT scans of your abdomen and pelvis, blood work, urinalysis and also checked for blood clots in your lungs with a CT scan of your chest. The entire workup was very reassuringly normal. There are no blood clots in her lungs, no pulmonary or obvious cardiac abnormalities, no unusual findings in your abdomen, no large blood clots or collections of fluid to suggest abscess developing. Your blood work does not suggest infection, significant anemia and your urine was absolutely reassuring with no sign of bladder infection. I suspect that your pain is related to the fact that you stop the ibuprofen and Tylenol completely and is still postoperative pain. I would recommend that you go back to the ibuprofen and Tylenol with an occasional oxycodone at night to help you sleep. Regarding your sleep, I encourage you to follow-up with your primary care doc regarding your sleep difficulties over the last number of months. If you find that you are getting worse or develop any new symptoms, please feel free to return to the emergency department for further evaluation. Prescriptions: No Action Rybelsus 3 mg tablet 3 mg PO DAILY 30 Days Qty: 30 0RF Rx Instructions: start 3 mg x 30 days then increase to 7 mg qd; give w/<4 oz water 30 min before 1st food/drink/med Rybelsus 7 mg tablet 7 mg PO DAILY Qty: 30 2RF ciprofloxacin HCl [Cipro] 500 mg tablet 500 mg PO BID Qty: 14 0RF mebendazole 100 mg tablet,chewable 100 mg PO ONCE Qty: 2 0RF Rx Instructions: as a single dose; may repeat in 3 weeks if still symptomatic melatonin 3 mg tablet 3 mg PO BEDTIME PRN cholecalciferol (vitamin D3) 125 mcg (5,000 unit) capsule 125 mcg PO DAILY Adult 50 Plus Probiotic 4 billion cell capsule 4,000 mmu cells PO DAILY Rx Instructions: administer with a meal magnesium gluconate 500 mg tablet 1,600 mg PO BID omega-3 fatty acids 500 mg capsule 500 mg PO DAILY carica papaya Tablet,Chewable PO thyroid (pork) [[place] Thyroid] 30 mg tablet 45 mg PO DAILY Qty: 45 2RF Ozempic 0.25 mg or 0.5 mg(2 mg/1.5 mL) pen injector 0.25 mg SUBCUT QWEEK Qty: 1.5 1RF Rx Instructions: Start 0.25mg qwkly x 4 weeks; then increase to 0.5mg q wkly x 4 weeks Referrals: Paulo Díaz MD [Primary Care Provider] - Stand Alone Forms: Patient Portal/API
[2022-05-26 19:29] LABS: Bacteria Urine None Seen; Culture Indicated Urine Cult Not Indicated; RBC Urine None Seen (0-5/HPF); Squamous Epithelial Cell Urine 0-1 /HPF (0-5/HPF); WBC Urine None Seen (0-5/HPF)
[2022-05-26 19:48] LABS: D Dimer 719 ng/ml (<500)
--- NOTE | 2022-05-26 19:55 | DI.CT.S_ITS ---
PROCEDURE: CT ABDOMEN PELVIS W CON INDICATIONS: increasing pelvic pain. vag hyst 05/10/22 TECHNIQUE: After the administration of IV contrast, axial sections were acquired from the lung bases to the pubic symphysis. Coronal and sagittal reformats were performed. For radiation dose reduction, the following was used: automated exposure control, adjustment of mA and/or kV according to patient size. COMPARISON: None. FINDINGS: Image quality: Excellent. Lung bases: There is mild dependent atelectasis bilaterally. Heart: Heart is normal in size. Chest wall: There are partially visualized bilateral peripherally calcified breast implants. ABDOMEN: Liver: No mass lesion. A few punctate hypodense foci throughout the liver are too small to characterize but likely represent small cysts. There is focal fatty infiltration in the anterior left hepatic lobe. Gallbladder: Within normal limits without calcified gallstones. Biliary ducts: No biliary ductal dilatation. Pancreas: Unremarkable. Spleen: Normal in size. Adrenal Glands: No adrenal nodules. Kidneys and Ureters: No hydronephrosis. Stomach and Bowel: Stomach and small bowel loops are normal in caliber and wall thickness. The appendix is normal in appearance. There is colonic diverticulosis without acute diverticulitis. Moderate stool distention is demonstrated within the cecum and ascending colon suggestive of constipation. Peritoneum: There is minimal free fluid in the pelvis adjacent to the vaginal cuff. No loculated fluid collection to suggest an abscess. There are few small subdiaphragmatic foci of free air consistent with residual sequelae of recent surgery. Ventral Wall: No hernia. Abdominal Nodes: No retroperitoneal or mesenteric adenopathy by size criteria. Vessels: Aorta and inferior vena cava are normal in size. PELVIS: Pelvic Organs: Uterus is surgically absent with mild wall thickening of the vaginal cuff likely representing postsurgical edema. Bladder: Unremarkable. Pelvic Nodes: No enlarged lymph nodes. Miscellaneous: No inguinal hernias are seen. Bones: Visualized osseous structures demonstrate no suspicious focal lesions. IMPRESSION: 1. Minimal free fluid in the pelvis adjacent the vaginal cuff without a discrete abscess collection. 2. A few scattered small foci of subdiaphragmatic free air likely represent residual sequelae of recent surgery. Dictated by: Leonardo Cornejo M.D. on 05/26/2022 at 20:56 Approved by: Leonarod Cornejo M.D. on 05/26/2022 at 21:02
--- NOTE | 2022-05-26 19:55 | DI.CT.S_ITS ---
PROCEDURE: CT ANGIO CHEST PE PROTOCOL INDICATIONS: post op, dyspnea, palpitaions, elevated d-dimer TECHNIQUE: After the administration of intravenous contrast, 2 mm thick sections acquired from the pulmonary apices to the posterior costophrenic angles. 3-dimensional maximum intensity projection (MIP) coronal and sagittal reformats were then acquired through the thorax. For radiation dose reduction, the following was used: automated exposure control, adjustment of mA and/or kV according to patient size. COMPARISON: None. FINDINGS: Image quality: Excellent. Pulmonary arteries: Pulmonary arteries are normal in size, and demonstrate no intraluminal filling defects to suggest central pulmonary embolism. Lower Neck: No lymphadenopathy by size criteria. Thyroid: Visualized thyroid demonstrates no discrete nodules. Axillae: No lymphadenopathy by size criteria. Chest Wall: There are bilateral peripherally calcified breast implants which appear intact. Bones: Visualized osseous structures demonstrate no suspicious lesions. Lungs and Airways: No acute consolidation. There is mild dependent atelectasis bilaterally. The trachea and central airways are patent. Pleura: No pneumothorax or pleural effusions. Heart: Heart size is normal. No pericardial effusion. Thoracic Vessels: The thoracic aorta is normal in size. Mediastinum and Judith: No lymphadenopathy by size criteria. Esophagus: No wall thickening. No hiatal hernia. Abdomen: Visualized upper abdominal solid organs appear normal in the early arterial phase of enhancement. IMPRESSION: 1. No evidence of pulmonary embolism. 2. No acute airspace consolidation. Dictated by: Leonardo Cornejo M.D. on 05/26/2022 at 20:51 Approved by: Leonardo Cornejo M.D. on 05/26/2022 at 20:53
[2022-05-26] MEDS: SODIUM CHLORIDE 0.9% 1,000 ML 1000 ML IV (19:58)
[2022-05-26] MEDS: KETOROLAC 30 MG/ML VIAL 15 MG IV (19:59)
[2022-05-26] MEDS: OXYCODONE/APAP 5/325 PREPACK 1 BOTTLE MISC (22:35)
[2022-05-26] MEDS: OXYCODONE/ACETAMINOPHEN 5/325 TABLET 1 TAB PO (22:35)
== END 2022-05-26 22:40 | disposition home or self-care (01) ==
PROVIDERS: Emergency Provider Emergency Medicine; Family Provider Family Medicine; PCP Family Medicine
DX: G89.18 Other acute postprocedural pain (principal); R53.83 Other fatigue; G47.9 Sleep disorder, unspecified; R06.00 Dyspnea, unspecified; Z90.710 Acquired absence of both cervix and uterus
CPT/HCPCS: 36415; 71275; 74177; 80053; 81003; 81015; 81025; 83690; 85025; 85379; 96361; 96374; 99284; J1885; Q9967

== ENCOUNTER → 2022-05-31 11:24 | Outpatient (CLI) | payer OTHER, SELFPAY ==
[2022-05-31 19:42] LABS: Alanine Aminotransferase 28 IU/L (<35); Albumin 4.4 g/dL (3.5-5.0); Albumin Globulin Ratio 1.5 (1.0-2.8); Alkaline Phosphatase 72 U/L (38-126); Aspartate Aminotransferase 37 IU/L (14-36); BUN Creatinine Ratio 16.4 (6-22); Bilirubin Total 0.7 mg/dL (0.2-1.3); Blood Urea Nitrogen 12 mg/dL (7-17); Calcium 9.6 mg/dL (8.4-10.2); Carbon Dioxide 29 mmol/L (22-32); Chloride 97 mmol/L (98-107); Estimated Glomerular Filt Rate > 60 mL/min (>60); Glucose 90 mg/dL (70-100); HEMOLYSIS < 15 (0-50); Potassium 4.1 mmol/L (3.4-5.1); Sodium 139 mmol/L (137-145); Total Protein 7.4 g/dL (6.3-8.2)
[2022-05-31 19:46] LABS: Add Manual Diff / Slide Review NO; Basophils Absolute Auto 0 /uL (0-100); Basophils Percent Auto 0.4 % (0-2); Eosinophils Absolute Auto 100 /uL (0-450); Eosinophils Percent Auto 0.9 % (2-4); Hematocrit 47.2 % (36-46); Hemoglobin 15.8 g/dL (12.0-16.0); Lymphocytes Absolute Auto 1400 /uL (1100-4500); Mean Corpuscular HGB Conc 33.4 % (30-36); Mean Corpuscular Hemoglobin 29.7 PG (26-34); Mean Corpuscular Volume 89.1 fL (80-100); Monocytes Absolute Auto 400 /uL (0-900); Monocytes Percent Auto 5.4 % (3-14); Neutrophils Absolute Auto 5400 /uL (1500-7000); Neutrophils Percent Auto 74.3 % (50-75); Platelet Count 252 X10^3/uL (150-400); Red Cell Distribution Width 13.1 % (11.6-14.8); White Blood Cell Count 7.2 X10^3/uL (4.5-11.0)
[2022-05-31 19:59] LABS: Free T3, Triiodothyronine Free 3.69 pg/mL (2.77-5.27); Free T4, Direct Thyroxine 0.96 ng/dL (0.78-2.19)
[2022-05-31 20:13] LABS: Thyroid Stimulating Hormone 0.967 uIU/mL (0.47-4.68)
[2022-06-01 15:19] LABS: D Dimer 456 ng/ml (<500)
== END ==
PROVIDERS: Family Provider Family Medicine; PCP Family Medicine; Visit Provider Physician Assistant
DX: E03.9 Hypothyroidism, unspecified (principal); R53.83 Other fatigue
CPT/HCPCS: 80053; 84439; 84443; 84481; 85025; 85379

== ENCOUNTER → 2022-06-01 10:37 | Outpatient (CLI) | payer OTHER, SELFPAY | PROVIDERS: Family Provider Family Medicine; PCP Family Medicine; Visit Provider Physician Assistant | DX: R30.0 Dysuria (principal) | CPT/HCPCS: 87086 ==

== ENCOUNTER → 2022-07-05 11:01 | Outpatient (CLI) | payer OTHER, SELFPAY ==
--- NOTE | 2022-07-05 11:02 | DIET.CONS ---
Dietary Consultation Note 51 y/o F came in for weight management and nutrition to support mental health. Medical hx: suffers with mental health issues (anxiety and depression), hysterectomy on 05/10/22, currently going through menopause. Has acute hepatic steatosis (scan in May). No longer has SIBO or IBS symptoms. Treated SIBO (probiotic and oregano extract) and knows her IBS triggers. Pt would like to know if there are certain foods or supplements to support serotonin production in gut. Pt notes ?we are what we eat,? and supports the gut-brain health relationship.? Weight hx: last summer 187 lbs. Middle of last summer cut out eating sugar, processed snacks, slowed down on ETOH, marijuana, and exercised more (10,000 steps/day). Resulted in?some wt loss (178 lbs). Did try Ozempic which worked (153 lbs), however, did lose appetite completely while taking. Has discussed with doctor about starting back up on Ozempic but only 0.25mg every other week. Pt believes she can lose more wt without the medication by exercising more which she has decreased recently due to hysterectomy.? Height: 64 inches Weight: 153 lbs (pt reported) Diet Recall: 8:30-9: takes thyroid medication and probiotic (inner-eco you gut this) with water.? B: homemade protein shake - water and 3/10 shake all in one meal OR KOS plant protein OR cheribundi OR Ripple protein shake S: veggies (1/2 avocado or bowl of cucumbers, celery, carrots) D: greens (leafy or fresh salad), protein (chicken, beef, chicken, pork) with rice or potatoes. Occasional pasta or slice of pizza with bowl of veggies OR burrito 1-2x week.? S: no more snacking. Desire for food has changed.? Protein Shakes: - 3/10 shake all in one meal: 110 kcal, 15 g protein, 0 g sugar, vitamins and minerals. - KOS plant (pea) protein: 150 kcal, 20 g protein, 2 g sugar, vitamins and minerals, digestive enzymes. - Cheribundi protein juan juice: 140 kcal, 9 g protein, 27 g sugar, vitamins and minerals. - Ripple: 200 kcal, 20 g protein, 9 g sugar, vitamins and minerals.? Fluids: 60-70 oz water a day with some electrolyte additions - less now since being less active. Coffee a couple times a week. Enjoys tea (dandelion) and mushroom coffee. No longer craves snacking foods or sugar since Ozempic start/discontinuation. Uses avocado oil for cooking. Occasionally eats beans and lentils. Avoids bread. Pt had questions about the relationship between sugar alcohols and stroke.? Diagnosis: unintended weight gain r/t endocrine disorders aeb hysterectomy, thyroid dysfunction, hepatic steatosis, anxiety and depression, IBS, menopause, the need for Ozempic for wt loss support, little to no changes in wt with dietary changes.? Intervention:? 1. Discussed the importance and food sources of prebiotics to support gut health/feed good bacteria and brain. Collaborated no ways to incorporate sources.? 2. Went through pts current ONS to ensure adequate and supportive ingredients/nutrients.? 3. Discussed the importance of fiber and how it supports weight loss. Discussed sources of fiber and how to get recommended amount throughout day. Recommend 21 g/day of fiber. 4. Recommend 75 g/day of protein to support lean body mass.? 5. Recommend no more than 25 g added sugar/day. Suggested occasional sugar alcohols.? 6. For hepatic steatosis, recommended decreasing/avoiding added sugars such as HFCS, agave nectar and juan juice supplement drink. 7. Recommend at least consuming ready made protein shakes when appetite is lacking.?To check with PCP if this occurs more than 1x/w. Monitoring/Evaluation: f/u prn Electronically Signed by: Ebonie Ly 07/05/22 11:02 Clinical Dietitian [address] [id number]
== END ==
PROVIDERS: Absent Provider Family Medicine; Family Provider Family Medicine; PCP Physician Assistant; Referring Provider Physician Assistant; Visit Provider Physician Assistant
DX: F41.9 Anxiety disorder, unspecified (principal); F32.A Depression, unspecified; Z71.3 Dietary counseling and surveillance; Z78.0 Asymptomatic menopausal state; K76.0 Fatty (change of) liver, not elsewhere classified
CPT/HCPCS: 97802

== ENCOUNTER → 2023-02-20 09:55 | Outpatient (CLI) | payer OTHER, SELFPAY ==
[2023-02-20 19:44] LABS: Add Manual Diff / Slide Review NO; Basophils Absolute Auto 0 /uL (0-100); Basophils Percent Auto 0.6 % (0-2); Eosinophils Absolute Auto 100 /uL (0-450); Eosinophils Percent Auto 1.5 % (2-4); Lymphocytes Absolute Auto 1400 /uL (1100-4500); Mean Corpuscular HGB Conc 33.4 % (30-36); Mean Corpuscular Hemoglobin 30.1 PG (26-34); Mean Corpuscular Volume 90.2 fL (80-100); Monocytes Absolute Auto 400 /uL (0-900); Monocytes Percent Auto 8.3 % (3-14); Neutrophils Absolute Auto 2600 /uL (1500-7000); Neutrophils Percent Auto 57.6 % (50-75); Platelet Count 190 X10^3/uL (150-400); Red Blood Cell Count 4.33 X10^6/uL (4.0-5.2); Red Cell Distribution Width 12.6 % (11.6-14.8); White Blood Cell Count 4.5 X10^3/uL (4.5-11.0)
[2023-02-20 19:50] LABS: Blood Urea Nitrogen 15 mg/dL (7-17); Calcium 9.2 mg/dL (8.4-10.2); Carbon Dioxide 27 mmol/L (22-32); Chloride 104 mmol/L (98-107); Cholesterol 191 mg/dL (140-199); Estimated Glomerular Filt Rate > 60 mL/min (>60); Glucose 103 mg/dL (70-100); HDL Cholesterol 52 mg/dL (40-60); HEMOLYSIS < 15 (0-50); LDL Cholesterol Calculated 118 mg/dL (<100); Sodium 139 mmol/L (137-145); Triglycerides 104 mg/dL (35-150)
[2023-02-20 20:17] LABS: TSH w/ Reflex to FT4 0.02 uIU/mL (0.47-4.68)
[2023-02-20 20:48] LABS: Free T4, Direct Thyroxine 1.45 ng/dL (0.78-2.19)
== END ==
PROVIDERS: Family Provider Family Medicine; PCP Family Medicine; Visit Provider Family Medicine
DX: F32.9 Major depressive disorder, single episode, unspecified (principal); E03.9 Hypothyroidism, unspecified; Z13.220 Encounter for screening for lipoid disorders
CPT/HCPCS: 80048; 80061; 84439; 84443; 85025

== ENCOUNTER → 2023-04-27 15:24 | Outpatient (CLI) | payer OTHER, SELFPAY ==
--- NOTE | 2023-04-27 | DI.MG.S_ITS ---
BILATERAL DIGITAL SCREENING MAMMOGRAM 3D/2D WITH CAD WITH AUGMENTATION: 04/27/2023 CLINICAL: Routine screening. Comparison is made to exams dated: 03/06/2022 mammogram, 03/12/2020 mammogram, and 07/26/2015 mammogram - [facility]. Both breasts are extremely dense, which lowers the sensitivity of mammography (category d />75% glandular tissue). Current study was also evaluated with a Computer Aided Detection (CAD) system. Bilateral breast implants are intact. No significant masses, calcifications, or other findings are seen in either breast. There has been no significant interval change. IMPRESSION: BENIGN There is no mammographic evidence of malignancy. A 1 year screening mammogram is recommended. Based on the Tyrer Cuzick model (a risk assessment model) the patient's lifetime risk is 17.8% and her 10 year risk is 4.7%. According to the ACR, ACS, and NCCN guidelines, an annual breast MRI exam along with mammogram is recommended if the patient's lifetime risk is 20% or greater. This exam was interpreted at Station ID: [id number]. NOTE: For mammograms, a report in lay terms will be sent to the patient. Approximately 15% of breast malignancies will not be visualized mammographically. In the management of a palpable breast mass, a negative mammogram must not discourage biopsy of a clinically suspicious lesion. Electronically Signed By: Khoi wallace/bryn:04/27/2023 16:43:24 letter sent: Normal Exam ACR BI-RADS Category 2: Benign Finding(s) 3342F
== END ==
PROVIDERS: Family Provider Family Medicine; PCP Family Medicine; Referring Provider Family Medicine; Visit Provider Family Medicine
DX: Z12.31 Encounter for screening mammogram for malignant neoplasm of breast (principal)
CPT/HCPCS: 77063; 77067

== ENCOUNTER → 2023-07-11 14:21 | Outpatient (CLI) | payer OTHER, SELFPAY ==
[2023-07-11 18:49] LABS: Hematocrit 43.1 % (36-46); Hemoglobin 14.4 g/dL (12.0-16.0); Mean Corpuscular HGB Conc 33.4 % (30-36); Mean Corpuscular Hemoglobin 29.7 PG (26-34); Mean Corpuscular Volume 88.9 fL (80-100); Platelet Count 250 X10^3/uL (150-400); Red Blood Cell Count 4.85 X10^6/uL (4.0-5.2); White Blood Cell Count 7.3 X10^3/uL (4.5-11.0)
[2023-07-11 19:02] LABS: C-Reactive Protein Quant < 0.5 mg/dL (<1.0); Rheumatoid Factor < 8.6 IU/mL (<12.0)
[2023-07-11 19:29] LABS: TSH w/ Reflex to FT4 1.09 uIU/mL (0.47-4.68)
[2023-07-11 20:23] LABS: Erythrocyte Sedimentation Rate 6 MM/HR (0-20)
[2023-07-16 15:36] LABS: ANA Screen, IFA Negative (.)
== END ==
PROVIDERS: Family Provider Family Medicine; PCP Family Medicine; Visit Provider Physician Assistant Medical
DX: L08.9 Local infection of the skin and subcutaneous tissue, unspecified (principal); M54.2 Cervicalgia; M62.830 Muscle spasm of back; M54.6 Pain in thoracic spine
CPT/HCPCS: 84443; 85027; 85651; 86038; 86140; 86430

== ENCOUNTER → 2024-04-24 12:00 | Outpatient (CLI) | payer OTHER, SELFPAY ==
[2024-04-24 19:59] LABS: Add Manual Diff / Slide Review NO; Basophils Absolute Auto 0 /uL (0-100); Basophils Percent Auto 0.4 % (0-2); Eosinophils Absolute Auto 100 /uL (0-450); Eosinophils Percent Auto 1.5 % (2-4); Hematocrit 42.3 % (36-46); Hemoglobin 13.8 g/dL (12.0-16.0); Lymphocytes Absolute Auto 1800 /uL (1100-4500); Lymphocytes Percent Auto 33.2 % (25-40); Mean Corpuscular HGB Conc 32.6 % (30-36); Mean Corpuscular Hemoglobin 29.9 PG (26-34); Mean Corpuscular Volume 91.8 fL (80-100); Monocytes Absolute Auto 300 /uL (0-900); Monocytes Percent Auto 5.8 % (3-14); Neutrophils Absolute Auto 3200 /uL (1500-7000); Neutrophils Percent Auto 59.1 % (50-75); Platelet Count 235 X10^3/uL (150-400); White Blood Cell Count 5.5 X10^3/uL (4.5-11.0)
[2024-04-24 20:12] LABS: BUN Creatinine Ratio 22.5 (6-22); Blood Urea Nitrogen 16 mg/dL (7-17); Calcium 8.8 mg/dL (8.4-10.2); Carbon Dioxide 28 mmol/L (22-32); Chloride 104 mmol/L (98-107); Cholesterol 232 mg/dL (140-199); Estimated Glomerular Filt Rate > 60 mL/min (>60); Glucose 98 mg/dL (70-100); HDL Cholesterol 65 mg/dL (40-60); HEMOLYSIS < 15 (0-50); LDL Cholesterol Calculated 143 mg/dL (<100); Sodium 135 mmol/L (137-145); Triglycerides 122 mg/dL (35-150)
[2024-04-24 20:42] LABS: TSH w/ Reflex to FT4 1.37 uIU/mL (0.47-4.68)
== END ==
PROVIDERS: Family Provider Family Medicine; PCP Family Medicine; Visit Provider Family Medicine
DX: F41.1 Generalized anxiety disorder (principal); E03.9 Hypothyroidism, unspecified; E78.5 Hyperlipidemia, unspecified; R53.83 Other fatigue
CPT/HCPCS: 80048; 80061; 84443; 85025

== ENCOUNTER → 2024-08-07 12:39 | Outpatient (CLI) | payer OTHER, SELFPAY ==
[2024-08-07 19:21] LABS: Add Manual Diff / Slide Review NO; Basophils Absolute Auto 0 /uL (0-100); Basophils Percent Auto 0.3 % (0-2); Eosinophils Absolute Auto 0 /uL (0-450); Eosinophils Percent Auto 0.3 % (2-4); Hematocrit 42.8 % (36-46); Hemoglobin 14.4 g/dL (12.0-16.0); Lymphocytes Absolute Auto 1200 /uL (1100-4500); Lymphocytes Percent Auto 15.4 % (25-40); Mean Corpuscular HGB Conc 33.7 % (30-36); Mean Corpuscular Hemoglobin 30.4 PG (26-34); Mean Corpuscular Volume 90.4 fL (80-100); Monocytes Absolute Auto 400 /uL (0-900); Monocytes Percent Auto 4.7 % (3-14); Neutrophils Absolute Auto 6300 /uL (1500-7000); Neutrophils Percent Auto 79.3 % (50-75); Platelet Count 248 X10^3/uL (150-400); Red Blood Cell Count 4.74 X10^6/uL (4.0-5.2); Red Cell Distribution Width 13.3 % (11.6-14.8); White Blood Cell Count 7.9 X10^3/uL (4.5-11.0)
[2024-08-07 19:36] LABS: C-Reactive Protein Quant < 0.5 mg/dL (<1.0)
[2024-08-07 20:38] LABS: Erythrocyte Sedimentation Rate 12 MM/HR (0-20)
== END ==
PROVIDERS: Family Provider Family Medicine; PCP Family Medicine; Referring Provider Family Medicine; Visit Provider Physician Assistant Medical
DX: J01.90 Acute sinusitis, unspecified (principal); R53.83 Other fatigue; M79.10 Myalgia, unspecified site
CPT/HCPCS: 85025; 85651; 86140

== ENCOUNTER → 2024-08-11 08:52 | Outpatient (CLI) | payer OTHER, SELFPAY ==
--- NOTE | 2024-08-11 08:54 | DI.US.S_ITS ---
US breast LT limited, MM diagnostic mammo implant BI: 08/11/2024 BI-RADS: 1 CLINICAL: 53-year old female for bilateral diagnostic mammogram and left diagnostic breast ultrasound. Tyrer-Cuzick lifetime risk of 14.0%. No personal or first-degree family history of breast cancer. The patient reports testing negative for BRCA gene mutation. The patient reports pain (9 months) in the left breast. The patient has bilateral implants. PRIOR EXAMS 04/27/2023, 03/06/2022, 03/12/2020, 07/26/2015. MAMMOGRAPHY TECHNIQUE: 2D and 3D (tomosynthesis) digital mammographic views obtained, with additional images as needed for full coverage. Current study was also evaluated with a Computer Aided Detection (CAD) system. ULTRASOUND TECHNIQUE TARGETED Left Breast Ultrasound: Real-time ultrasound exam was performed focused to area of clinical and/or imaging concern. DENSITY D. The breasts are extremely dense, which lowers the sensitivity of mammography. MAMMOGRAPHY FINDINGS Left: A marker overlies the breast at the site of focal pain and itching, 9:00-10:00 middle depth. There is no underlying mammographic finding to explain symptoms. Bilateral Saline implants. No suspicious mass, asymmetry, microcalcification, or other abnormality seen. These findings are stable. ULTRASOUND FINDINGS Left: Upper Inner at 10:00, 6.0 cm from nipple: There is no suspicious sonographic finding. There is no sonographic correlate for the symptom of focal pain. No suspicious sonographic finding present. IMPRESSION: * No evidence of malignancy. RECOMMENDATIONS Bilateral * Annual screening mammography. COMMENTS: Findings and recommendations were conveyed to the patient during today's evaluation. OVERALL ASSESSMENT CATEGORY BI-RADS-1: Negative. The [employer] recommends annual screening mammography beginning at age 40 for women with average risk of breast cancer. ELECTRONICALLY SIGNED: Domonique Monterroso M.D. on 08/11/2024 at 10:24:59 AM PT Interpreting Station ID: [id number]
--- NOTE | 2024-08-11 10:01 | DI.CT.S_ITS ---
PROCEDURE: CT SINUS SCREEN WO CON INDICATIONS: persistant sinus congestion TECHNIQUE: Noncontrast 3.0 mm axial images acquired from the frontal sinuses to the mid-sella, with coronal and sagittal reformats. For radiation dose reduction, the following was used: automated exposure control, adjustment of mA and/or kV according to patient size. COMPARISON: None. FINDINGS: Image quality: Excellent. Maxillary Sinuses: No bony remodeling or destruction. Sinuses are clear. Ethmoid Air Cells: No bony remodeling or destruction. Sinuses are clear. Sphenoid Sinuses: No bony remodeling or destruction. Sinuses are clear. Frontal Sinuses: No bony remodeling or destruction. Sinuses are clear. Ostiomeatal Complexes: Ostiomeatal complexes are patent. No Leticia cells. Miscellaneous: Visualized intra-orbital contents are normal. Left greater than right deepa bullosa. No paradoxical turbinate curvature. Mild leftward nasal septal deviation. IMPRESSION: The paranasal sinuses are clear. Dictated by: Alireza Maldonado M.D. on 08/12/2024 at 9:05 Approved by: Alireza Maldonado M.D. on 08/12/2024 at 9:10
== END ==
PROVIDERS: Family Provider Family Medicine; PCP Family Medicine; Referring Provider Nurse Practitioner Adult Health; Visit Provider Nurse Practitioner Adult Health
DX: N64.4 Mastodynia (principal); R92.343 Mammographic extreme density, bilateral breasts; J01.90 Acute sinusitis, unspecified; J34.3 Hypertrophy of nasal turbinates; J34.2 Deviated nasal septum; Z98.82 Breast implant status
CPT/HCPCS: 70486; 76642; 77066; G0279

== ENCOUNTER → 2025-02-17 15:46 | Outpatient (CLI) | payer OTHER, SELFPAY | PROVIDERS: Family Provider Family Medicine; PCP Family Medicine; Visit Provider Physician Assistant Medical | DX: N39.0 Urinary tract infection, site not specified (principal) | CPT/HCPCS: 87077; 87086; 87186 ==

== ENCOUNTER → 2025-03-24 08:59 | Outpatient (CLI) | payer OTHER, SELFPAY ==
[2025-03-24 19:02] LABS: Add Manual Diff / Slide Review NO; Hematocrit 39.6 % (36-46); Hemoglobin 13.4 g/dL (12.0-16.0); Lymphocytes Absolute Auto 1500 /uL (1100-4500); Mean Corpuscular HGB Conc 34.0 % (30-36); Mean Corpuscular Hemoglobin 30.5 PG (26-34); Mean Corpuscular Volume 89.9 fL (80-100); Platelet Count 235 X10^3/uL (150-400)
[2025-03-24 19:12] LABS: Blood Urea Nitrogen 22 mg/dL (7-17); Calcium 9.6 mg/dL (8.4-10.2); Carbon Dioxide 27 mmol/L (22-32); Chloride 104 mmol/L (98-107); Cholesterol 246 mg/dL (140-199); Estimated Glomerular Filt Rate > 60 mL/min (>60); Glucose 82 mg/dL (70-99); HDL Cholesterol 79 mg/dL (40-60); HEMOLYSIS < 15 (0-50); Potassium 4.2 mmol/L (3.4-5.1); Sodium 139 mmol/L (137-145); Triglycerides 219 mg/dL (35-150)
[2025-03-24 19:35] LABS: TSH w/ Reflex to FT4 2.77 uIU/mL (0.47-4.68)
== END ==
PROVIDERS: Family Provider Family Medicine; PCP Family Medicine; Visit Provider Family Medicine
DX: F98.8 Other specified behavioral and emotional disorders with onset usually occurring in childhood and adolescence (principal); K21.00 Gastro-esophageal reflux disease with esophagitis, without bleeding; E78.5 Hyperlipidemia, unspecified; E03.9 Hypothyroidism, unspecified; F32.9 Major depressive disorder, single episode, unspecified; K59.09 Other constipation
CPT/HCPCS: 80048; 80061; 84443; 85025